=== PATIENT | female | born 1985 | race Caucasian/White ===

== ENCOUNTER 2016-06-18 07:39 | Emergency (ER) | payer OTHER ==
[2016-06-18 08:50] LABS: UDS - AMPHET NEGATIVE QUAL (NEGATIVE); UDS - BARB NEGATIVE QUAL (NEGATIVE); UDS - BENZO NEGATIVE QUAL (NEGATIVE); UDS - COCAINE NEGATIVE QUAL (NEGATIVE); UDS - METH NEGATIVE QUAL (NEGATIVE); UDS - OPIATE NEGATIVE QUAL (NEGATIVE); UDS - PCP NEGATIVE QUAL (NEGATIVE); UDS - THC NEGATIVE QUAL (NEGATIVE)
[2016-06-18 08:59] LABS: BASOPHILS 0.2 % (0.0-2.0); EOSINOPHILS 0.8 % (0-7); HEMATOCRIT 42.6 % (36.0-48.0); HEMOGLOBIN 14.5 g/dL (12-16); IMMATURE GRANULOCYTES 0.1 % (0-5); LYMPHOCYTES 23.3 % (15-50); MCH 31.2 pg (26.0-34.0); MCV 91.6 fL (80.0-100.0); MEAN PLATELET VOLUME 10.1 fL (7.4-10.4); MONOCYTES 9.2 % (2-11); NEUTROPHILS 66.4 % (40-80); PLATELET COUNT 243 10x3/uL (130-400); RBC 4.65 10x6/uL (4.00-5.40); RDW 13.1 % (11.5-14.5); WBC 8.7 10x3/uL (4.8-10.8)
[2016-06-18 09:01] LABS: APPEARANCE CLEAR (CLEAR); BILIRUBIN NEGATIVE (NEGATIVE); COLOR YELLOW (YELLOW); GLUCOSE NEGATIVE (NEGATIVE); KETONE NEGATIVE (NEGATIVE); LEUKOCYTE ESTERASE NEGATIVE (NEGATIVE); NITRITE NEGATIVE (NEGATIVE); PROTEIN NEGATIVE (NEGATIVE); SPECIFIC GRAVITY 1.005 (1.005-1.020); UROBILINOGEN NORMAL (NORMAL)
[2016-06-18 09:02] LABS: HCG URINE NEGATIVE (NEGATIVE)
[2016-06-18 09:17] LABS: ALBUMIN 4.1 g/dL (3.4-5.0); ALKALINE PHOSPHATASE 63 U/L (46-116); ALT (SGPT) 25 U/L (10-68); AMYLASE - SERUM 26 U/L (25-115); BILIRUBIN - TOTAL 0.24 mg/dL (0.2-1.3); CALC OSMOLALITY 282 mosm/kg (275-300); CARBON DIOXIDE 21.2 mmol/L (21.0-32.0); CHLORIDE - SERUM 107 mmol/L (98-107); CREATININE - SERUM 0.9 mg/dL (0.6-1.3); GLUCOSE 112 mg/dL (74-106); LIPASE 140 U/L (73-393); PROTEIN - SERUM 8.1 g/dL (6.4-8.2); SODIUM 141 mmol/L (136-145); UREA NITROGEN 14 mg/dL (7-18); eGFR NON AFRICAN AMERICAN 77 mL/min (90-120)
== END 2016-06-18 12:18 | disposition home or self-care (01) ==
LOC: D.ER 07:39
PROVIDERS: Family Medicine
DX: M62.838 Other muscle spasm (principal); B19.20 Unspecified viral hepatitis C without hepatic coma

== ENCOUNTER 2017-03-14 11:44 | Emergency (ER) | payer MEDICAID | END 2017-03-14 12:46 | disposition home or self-care (01) | LOC: D.ER 11:44 | DX: S29.012A Strain of muscle and tendon of back wall of thorax, initial encounter (principal); X58.XXXA Exposure to other specified factors, initial encounter; Y93.89 Activity, other specified; Y92.019 Unspecified place in single-family (private) house as the place of occurrence of the external cause ==

== ENCOUNTER 2017-04-15 17:25 | Emergency (ER) | payer MEDICAID ==
[2017-04-15 18:13] LABS: APPEARANCE CLEAR (CLEAR); BILIRUBIN NEGATIVE (NEGATIVE); COLOR YELLOW (YELLOW); GLUCOSE NEGATIVE (NEGATIVE); KETONE SMALL mg/dL (NEGATIVE); NITRITE NEGATIVE (NEGATIVE); PROTEIN NEGATIVE (NEGATIVE); SPECIFIC GRAVITY 1.015 (1.005-1.020); UROBILINOGEN NORMAL (NORMAL)
[2017-04-15 19:38] LABS: BASOPHILS 0.2 % (0-2); EOSINOPHILS 0.8 % (0-7); HEMATOCRIT 42.5 % (36.0-48.0); HEMOGLOBIN 14.7 g/dL (12-16); IMMATURE GRANULOCYTES 0.3 % (0-5); LYMPHOCYTES 30.7 % (15-50); MCH 31.3 pg (26.0-34.0); MCHC 34.6 g/dL (31.0-37.0); MCV 90.6 fL (80.0-100.0); MEAN PLATELET VOLUME 9.5 fL (7.4-10.4); MONOCYTES 7.7 % (2-11); NEUTROPHILS 60.3 % (40-80); PLATELET COUNT 276 10x3/uL (130-400); RBC 4.69 10x6/uL (4.00-5.40); RDW 12.5 % (11.5-14.5); WBC 11.8 10x3/uL (4.8-10.8)
[2017-04-15 20:17] LABS: ALBUMIN 4.2 g/dL (3.4-5.0); ALKALINE PHOSPHATASE 74 U/L (46-116); ALT (SGPT) 48 U/L (10-68); AMYLASE - SERUM 32 U/L (25-115); BILIRUBIN - TOTAL 0.34 mg/dL (0.2-1.3); CALC OSMOLALITY 276 mosm/kg (275-300); CALCIUM 9.3 mg/dL (8.5-10.1); CARBON DIOXIDE 23.9 mmol/L (21.0-32.0); CHLORIDE - SERUM 103 mmol/L (98-107); CREATININE - SERUM 0.7 mg/dL (0.6-1.3); GLUCOSE 83 mg/dL (74-106); LIPASE 148 U/L (73-393); PROTEIN - SERUM 7.7 g/dL (6.4-8.2); SODIUM 140 mmol/L (136-145); UREA NITROGEN 9 mg/dL (7-18); eGFR NON AFRICAN AMERICAN > 90 mL/min (90-120)
== END 2017-04-15 21:40 | disposition home or self-care (01) ==
LOC: D.ER 17:25
PROVIDERS: Family Medicine
DX: R10.9 Unspecified abdominal pain (principal); N83.209 Unspecified ovarian cyst, unspecified side; B19.20 Unspecified viral hepatitis C without hepatic coma

== ENCOUNTER 2017-07-25 11:22 | Emergency (ER) | payer MEDICAID | END 2017-07-25 12:26 | disposition home or self-care (01) | LOC: D.ER 11:22 | DX: G43.909 Migraine, unspecified, not intractable, without status migrainosus (principal); B19.20 Unspecified viral hepatitis C without hepatic coma ==

== ENCOUNTER 2017-07-27 09:55 | Emergency (ER) | payer MEDICAID | END 2017-07-27 11:43 | disposition home or self-care (01) | LOC: D.ER 09:55 | DX: S93.402A Sprain of unspecified ligament of left ankle, initial encounter (principal); X58.XXXA Exposure to other specified factors, initial encounter; Y93.89 Activity, other specified; Y92.89 Other specified places as the place of occurrence of the external cause; M25.572 Pain in left ankle and joints of left foot; B19.20 Unspecified viral hepatitis C without hepatic coma ==

== ENCOUNTER 2017-08-09 21:05 | Emergency (ER) | payer MEDICAID ==
[2017-08-09 21:42] LABS: BASOPHILS 0.2 % (0-2); HEMATOCRIT 40.8 % (36.0-48.0); HEMOGLOBIN 14.2 g/dL (12-16); IMMATURE GRANULOCYTES 0.3 % (0-5); MCH 31.3 pg (26.0-34.0); MCHC 34.8 g/dL (31.0-37.0); MCV 90.1 fL (80.0-100.0); MEAN PLATELET VOLUME 9.7 fL (7.4-10.4); MONOCYTES 7.2 % (2-11); NEUTROPHILS 58.3 % (40-80); PLATELET COUNT 304 10x3/uL (130-400); RBC 4.53 10x6/uL (4.00-5.40); RDW 12.8 % (11.5-14.5); WBC 12.5 10x3/uL (4.8-10.8)
[2017-08-09 21:47] LABS: APPEARANCE HAZY (CLEAR); BILIRUBIN NEGATIVE (NEGATIVE); COLOR YELLOW (YELLOW); GLUCOSE NEGATIVE (NEGATIVE); KETONE NEGATIVE (NEGATIVE); NITRITE NEGATIVE (NEGATIVE); PROTEIN NEGATIVE (NEGATIVE); UROBILINOGEN NORMAL (NORMAL)
[2017-08-09 21:49] LABS: HCG SERUM NEGATIVE (NEGATIVE)
[2017-08-09 21:52] LABS: BACTERIA MODERATE /hpf (NONE SEEN); RED CELLS - URINE 0-5 /hpf (0-5)
[2017-08-09 22:01] LABS: ALBUMIN 3.8 g/dL (3.4-5.0); ALKALINE PHOSPHATASE 74 U/L (46-116); ALT (SGPT) 26 U/L (10-68); BILIRUBIN - TOTAL 0.14 mg/dL (0.2-1.3); CALC OSMOLALITY 279 mosm/kg (275-300); CALCIUM 9.4 mg/dL (8.5-10.1); CARBON DIOXIDE 22.8 mmol/L (21.0-32.0); CHLORIDE - SERUM 105 mmol/L (98-107); CREATININE - SERUM 0.8 mg/dL (0.6-1.3); GLUCOSE 105 mg/dL (74-106); PROTEIN - SERUM 7.7 g/dL (6.4-8.2); SODIUM 140 mmol/L (136-145); UREA NITROGEN 14 mg/dL (7-18); eGFR NON AFRICAN AMERICAN 88 mL/min (90-120)
== END 2017-08-09 23:02 | disposition home or self-care (01) ==
LOC: D.ER 21:05
PROVIDERS: Emergency Medicine
DX: N39.0 Urinary tract infection, site not specified (principal); N83.202 Unspecified ovarian cyst, left side; B19.20 Unspecified viral hepatitis C without hepatic coma

== ENCOUNTER 2017-08-13 07:41 | Emergency (ER) | payer MEDICAID ==
[2017-08-13 08:31] LABS: BASOPHILS 0.3 % (0-2); HEMATOCRIT 41.7 % (36.0-48.0); HEMOGLOBIN 14.3 g/dL (12-16); IMMATURE GRANULOCYTES 0.1 % (0-5); LYMPHOCYTES 33.5 % (15-50); MCH 31.4 pg (26.0-34.0); MCHC 34.3 g/dL (31.0-37.0); MCV 91.4 fL (80.0-100.0); MEAN PLATELET VOLUME 9.8 fL (7.4-10.4); MONOCYTES 6.7 % (2-11); NEUTROPHILS 58.4 % (40-80); PLATELET COUNT 293 10x3/uL (130-400); RBC 4.56 10x6/uL (4.00-5.40); RDW 12.8 % (11.5-14.5); WBC 8.6 10x3/uL (4.8-10.8)
[2017-08-13 08:36] LABS: HCG SERUM NEGATIVE (NEGATIVE)
[2017-08-13 08:37] LABS: ALBUMIN 3.5 g/dL (3.4-5.0); ALKALINE PHOSPHATASE 67 U/L (46-116); ALT (SGPT) 26 U/L (10-68); BILIRUBIN - TOTAL 0.14 mg/dL (0.2-1.3); CALC OSMOLALITY 275 mosm/kg (275-300); CARBON DIOXIDE 21.8 mmol/L (21.0-32.0); CHLORIDE - SERUM 104 mmol/L (98-107); CREATININE - SERUM 0.8 mg/dL (0.6-1.3); GLUCOSE 99 mg/dL (74-106); POTASSIUM - SERUM 3.9 mmol/L (3.5-5.1); PROTEIN - SERUM 7.8 g/dL (6.4-8.2); SODIUM 138 mmol/L (136-145); UREA NITROGEN 13 mg/dL (7-18); eGFR NON AFRICAN AMERICAN 88 mL/min (90-120)
[2017-08-13 08:40] LABS: APPEARANCE HAZY (CLEAR); BILIRUBIN NEGATIVE (NEGATIVE); COLOR YELLOW (YELLOW); GLUCOSE NEGATIVE (NEGATIVE); KETONE NEGATIVE (NEGATIVE); NITRITE NEGATIVE (NEGATIVE); PROTEIN NEGATIVE (NEGATIVE); UROBILINOGEN NORMAL (NORMAL)
[2017-08-13 08:41] LABS: BACTERIA MANY /hpf (NONE SEEN); MUCUS <1+ /lpf (NONE SEEN); RED CELLS - URINE RARE /hpf (0-5)
== END 2017-08-13 10:04 | disposition home or self-care (01) ==
LOC: D.ER 07:41
PROVIDERS: Family Medicine
DX: N39.0 Urinary tract infection, site not specified (principal); B19.20 Unspecified viral hepatitis C without hepatic coma

== ENCOUNTER 2017-10-10 09:55 | Day surgery (SDC) | payer MEDICAID ==
[2017-10-08 13:39] LABS: BASOPHILS 0.2 % (0-2); EOSINOPHILS 1.3 % (0-7); HEMATOCRIT 40.8 % (36.0-48.0); HEMOGLOBIN 14.1 g/dL (12-16); IMMATURE GRANULOCYTES 0.2 % (0-5); LYMPHOCYTES 32.2 % (15-50); MCHC 34.6 g/dL (31.0-37.0); MCV 89.7 fL (80.0-100.0); MEAN PLATELET VOLUME 9.7 fL (7.4-10.4); MONOCYTES 6.6 % (2-11); NEUTROPHILS 59.5 % (40-80); PLATELET COUNT 313 10x3/uL (130-400); RBC 4.55 10x6/uL (4.00-5.40); RDW 12.7 % (11.5-14.5); WBC 9.7 10x3/uL (4.8-10.8)
[~2017-10-10] VITALS: Ht 166.4 cm; Wt 93.9 kg
--- NOTE | ~2017-10-10 | OP ---
PATIENT NAME: MOON PARSONS MEDICAL RECORD: [id number] :85 LOCATION:D.OPS ADMISSION DATE: SURGEON: RICHY BELLA MD DATE OF OPERATION: 10/10/2017 PREOPERATIVE DIAGNOSIS: Pelvic pain. POSTOPERATIVE DIAGNOSES: 1. Pelvic pain. 2. Endometriosis. PROCEDURE PERFORMED: 1. Diagnostic laparoscopy. 2. Serosal biopsy of the uterus. 3. Fulguration of endometriosis. SURGEON: Richy Bella MD ANESTHESIOLOGIST: Dr. Wen. ANESTHESIA: General anesthetic with endotracheal intubation. FINDINGS: Fibrotic changes are noted over the uterine fundus. Active classic powder burn lesions of endometriosis is identified on the right ovary. Otherwise, the pelvic and abdominal anatomy is unremarkable. SPECIMEN REMOVED: Serosal biopsy of the uterus. SPECIMEN DISPOSITION: Pathology. ESTIMATED BLOOD LOSS: Less than or equal to 50 cc. FLUIDS: 500 cc lactated Ringer's. URINE OUTPUT: Quantity sufficient cath prior to the procedure. COMPLICATIONS: None. DRAINS: None. INDICATIONS: The patient is a 32-year-old female with pelvic pain. The patient has tried conservative therapy without satisfactory results. The patient was consented for diagnostic laparoscopy and any indicated procedure. DESCRIPTION OF PROCEDURE: After informed consent was assured, the patient was taken to the operating room where anesthetic was obtained. The patient is supine on the table and prepped and draped. An incision was made at the umbilicus to accommodate a 5-mm trocar, which is inserted without difficulty. Pneumoperitoneum was developed. Accessory ports placed in the midline. The patient had been then placed in steep Trendelenburg position, has a bowel swept free of the pelvis. The above findings were encountered. Another port was placed in the right lower quadrant. Through this port, a grasper was inserted. A biopsy instrument was now used to remove fibrotic changes on the uterine fundus. The endometriosis identified on the right ovary is now fulgurated with a monopolar hook at the setting of 20 brush. After this has been performed, OPERATIVE REPORT [id number] MOON PARSONS pelvis was irrigated and irrigant removed. Operative field is noted to be hemostatic. Accessory ports are removed under direct visualization as the pneumoperitoneum was released. After removal of pneumoperitoneum, primary trocars removed and the skin reapproximated with a subcuticular stitch. Sterile dressings applied. Sponge, lap, and needle counts correct times 2. The patient went to the recovery area in stable condition. TRANSINT:[id number] Voice Confirmation ID: [id number] DOCUMENT ID: [id number] RICHY BELLA MD at 0653 CC: [id number] DICTATION DATE: 11/11/17 0739 TECHNICIAN PLANT AND MAINTENANCE: 11/11/17 1006 [facility] 10/10/17 [place] [id number]
[~2017-10-10 09:55] MED LIST: AMOXICILLIN500 M1 PO; JUNEL FE 1.5-31 EACH PO; PSEUDO-GEST60 MG PO; ULTRAM50 MG PO
[2017-10-10 10:41] VITALS: BP 126/86; Ht 166.4 cm; Wt 93.9 kg
[2017-10-10 11:01] LABS: HCG URINE NEGATIVE (NEGATIVE)
== END 2017-10-10 17:05 | disposition home or self-care (01) ==
LOC: D.OPS 09:55 → D.PAN 10:00 → D.OPS 11:15 → D.PAN 11:15 → D.OPS 17:05
PROVIDERS: Obstetrics & Gynecology
DX: R10.2 Pelvic and perineal pain (principal); N80.0 Endometriosis of uterus

== ENCOUNTER 2017-11-14 18:22 | Emergency (ER) | payer MEDICAID ==
[~2017-11-14] VITALS: Ht 166.4 cm; Wt 95.5 kg
[2017-11-14 18:47] VITALS: Ht 166.4 cm; Wt 95.5 kg
[2017-11-14] MEDS ORDERED: IMITREX50 MG PO (18:49)
[2017-11-14] MEDS ORDERED: BUTALB-APAP-CA1 EACH PO (18:49)
[2017-11-15 00:45] VITALS: BP 149/90
== END 2017-11-14 23:05 | disposition home or self-care (01) ==
LOC: D.ER 18:22
DX: G43.909 Migraine, unspecified, not intractable, without status migrainosus (principal)

== ENCOUNTER 2017-11-16 12:27 | Emergency (ER) | payer MEDICAID ==
[~2017-11-16] VITALS: Ht 166.4 cm; Wt 95.5 kg
[~2017-11-16 12:27] MED LIST changes: +BUTALB-APAP-CA1 EACH PO; +IMITREX50 MG PO
[2017-11-16 12:30] VITALS: Ht 166.4 cm; Wt 95.5 kg
[2017-11-16 13:36] LABS: BASOPHILS 0.2 % (0-2); EOSINOPHILS 1.4 % (0-7); HEMOGLOBIN 14.1 g/dL (12-16); IMMATURE GRANULOCYTES 0.2 % (0-5); LYMPHOCYTES 38.1 % (15-50); MCH 31.2 pg (26.0-34.0); MCHC 34.4 g/dL (31.0-37.0); MCV 90.7 fL (80.0-100.0); MEAN PLATELET VOLUME 9.8 fL (7.4-10.4); MONOCYTES 5.9 % (2-11); NEUTROPHILS 54.2 % (40-80); PLATELET COUNT 286 10x3/uL (130-400); RBC 4.52 10x6/uL (4.00-5.40); RDW 12.6 % (11.5-14.5); WBC 8.8 10x3/uL (4.8-10.8)
[2017-11-16 13:50] LABS: ALBUMIN 3.6 g/dL (3.4-5.0); ALKALINE PHOSPHATASE 70 U/L (46-116); ALT (SGPT) 26 U/L (10-68); BILIRUBIN - TOTAL 0.14 mg/dL (0.2-1.3); CALC OSMOLALITY 282 mosm/kg (275-300); CARBON DIOXIDE 24.3 mmol/L (21.0-32.0); CHLORIDE - SERUM 107 mmol/L (98-107); CREATININE - SERUM 0.8 mg/dL (0.6-1.3); GLUCOSE 115 mg/dL (74-106); POTASSIUM - SERUM 3.9 mmol/L (3.5-5.1); PROTEIN - SERUM 7.5 g/dL (6.4-8.2); SODIUM 142 mmol/L (136-145); UREA NITROGEN 9 mg/dL (7-18); eGFR NON AFRICAN AMERICAN 88 mL/min (90-120)
[2017-11-16] MEDS ORDERED: AUGMENTIN 875-11 TAB PO (17:10)
[2017-11-16] MEDS ORDERED: FLUTICASONE PRO16 GM NASAL (17:10)
[2017-11-16 17:39] VITALS: BP 121/76
== END 2017-11-16 17:41 | disposition home or self-care (01) ==
LOC: D.ER 12:27
PROVIDERS: Family Medicine
DX: J01.90 Acute sinusitis, unspecified (principal); G43.909 Migraine, unspecified, not intractable, without status migrainosus

== ENCOUNTER 2017-12-19 07:34 | Emergency (ER) | payer MEDICAID ==
[~2017-12-19] VITALS: Ht 166.4 cm; Wt 90.9 kg
[~2017-12-19 07:34] MED LIST changes: +AUGMENTIN 875-11 TAB PO; +FLUTICASONE PRO16 GM NASAL
[2017-12-19 07:46] VITALS: Ht 166.4 cm; Wt 90.9 kg
[2017-12-19] MEDS ORDERED: LUPRON (07:49)
[2017-12-19] MEDS ORDERED: SUMATRIPTAN SUC25 MG PO (08:31)
[2017-12-19 09:12] VITALS: BP 133/090
== END 2017-12-19 09:14 | disposition home or self-care (01) ==
LOC: D.ER 07:34
DX: G43.909 Migraine, unspecified, not intractable, without status migrainosus (principal)

== ENCOUNTER 2018-01-24 10:16 | Emergency (ER) | payer MEDICAID ==
[~2018-01-24] VITALS: Ht 166.4 cm; Wt 100.0 kg
[~2018-01-24 10:16] MED LIST changes: +LUPRON; +SUMATRIPTAN SUC25 MG PO
[2018-01-24 10:32] VITALS: Ht 166.4 cm; Wt 100.0 kg
[2018-01-24 13:31] VITALS: BP 134/90
== END 2018-01-24 13:32 | disposition home or self-care (01) ==
LOC: D.ER 10:16
DX: G43.909 Migraine, unspecified, not intractable, without status migrainosus (principal)

== ENCOUNTER 2018-05-08 12:11 | Emergency (ER) | payer MEDICAID ==
[~2018-05-08] VITALS: Ht 166.4 cm; Wt 97.7 kg
[2018-05-08 12:26] VITALS: Ht 166.4 cm; Wt 97.7 kg
[2018-05-08 12:47] LABS: APPEARANCE HAZY (CLEAR); BILIRUBIN NEGATIVE (NEGATIVE); COLOR STRAW (YELLOW); GLUCOSE NEGATIVE (NEGATIVE); KETONE NEGATIVE (NEGATIVE); NITRITE NEGATIVE (NEGATIVE); PH 7.5 (5.0-6.0); PROTEIN NEGATIVE (NEGATIVE); SPECIFIC GRAVITY 1.005 (1.005-1.020); UROBILINOGEN NORMAL (NORMAL)
[2018-05-08 13:12] LABS: BASOPHILS 0.2 % (0-2); EOSINOPHILS 1.4 % (0-7); HEMATOCRIT 42.1 % (36.0-48.0); HEMOGLOBIN 14.7 g/dL (12-16); IMMATURE GRANULOCYTES 0.2 % (0-5); MCH 31.3 pg (26.0-34.0); MCHC 34.9 g/dL (31.0-37.0); MCV 89.6 fL (80.0-100.0); MEAN PLATELET VOLUME 9.8 fL (7.4-10.4); MONOCYTES 5.8 % (2-11); NEUTROPHILS 55.4 % (40-80); PLATELET COUNT 269 10x3/uL (130-400); RDW 12.6 % (11.5-14.5); WBC 9.3 10x3/uL (4.8-10.8)
[2018-05-08 13:15] LABS: ALBUMIN 4.1 g/dL (3.4-5.0); ALKALINE PHOSPHATASE 94 U/L (46-116); ALT (SGPT) 33 U/L (10-68); CALC OSMOLALITY 277 mosm/kg (275-300); CARBON DIOXIDE 21.8 mmol/L (21.0-32.0); CHLORIDE - SERUM 104 mmol/L (98-107); CREATININE - SERUM 0.8 mg/dL (0.6-1.3); GLUCOSE 90 mg/dL (74-106); POTASSIUM - SERUM 3.7 mmol/L (3.5-5.1); PROTEIN - SERUM 8.2 g/dL (6.4-8.2); SODIUM 140 mmol/L (136-145); UREA NITROGEN 9 mg/dL (7-18); eGFR NON AFRICAN AMERICAN 87 mL/min (90-120)
[2018-05-08] MEDS ORDERED: ULTRAM50 MG PO (13:35)
[2018-05-08 14:06] VITALS: BP 136/97
== END 2018-05-08 14:04 | disposition home or self-care (01) ==
LOC: D.ER 12:11
PROVIDERS: Emergency Medicine
DX: R10.2 Pelvic and perineal pain (principal)

== ENCOUNTER 2018-06-16 05:25 | Day surgery (SDC) | payer MEDICAID ==
[2018-06-13 10:56] LABS: BASOPHILS 0.4 % (0-2); EOSINOPHILS 0.6 % (0-7); HEMOGLOBIN 14.8 g/dL (12-16); IMMATURE GRANULOCYTES 0.2 % (0-5); LYMPHOCYTES 31.9 % (15-50); MCHC 35.2 g/dL (31.0-37.0); MCV 87.9 fL (80.0-100.0); MEAN PLATELET VOLUME 9.6 fL (7.4-10.4); MONOCYTES 8.4 % (2-11); NEUTROPHILS 58.5 % (40-80); PLATELET COUNT 300 10x3/uL (130-400); RBC 4.78 10x6/uL (4.00-5.40); RDW 12.9 % (11.5-14.5); WBC 8.4 10x3/uL (4.8-10.8)
[2018-06-13 11:07] LABS: CALC OSMOLALITY 285 mosm/kg (275-300); CALCIUM 9.2 mg/dL (8.5-10.1); CARBON DIOXIDE 22.7 mmol/L (21.0-32.0); CHLORIDE - SERUM 107 mmol/L (98-107); CREATININE - SERUM 0.8 mg/dL (0.6-1.3); GLUCOSE 102 mg/dL (74-106); POTASSIUM - SERUM 4.1 mmol/L (3.5-5.1); SODIUM 143 mmol/L (136-145); UREA NITROGEN 16 mg/dL (7-18); eGFR NON AFRICAN AMERICAN 87 mL/min (90-120)
[2018-06-16] VITALS (8 sets, daily range): BP systolic 102–113; BP diastolic 63–82; Ht 166.4 cm; Wt 97.3 kg
[~2018-06-16] VITALS: Ht 166.4 cm; Wt 97.3 kg
[~2018-06-16 05:25] MED LIST changes: +CENTRUM SILVER1 EAC3 PO
[2018-06-16] MEDS ORDERED: AJOVY SQ (05:54)
[2018-06-16] MEDS ORDERED: NIZORAL 2 % SH120 ML (05:54)
[2018-06-16 06:30] LABS: HCG URINE NEGATIVE (NEGATIVE)
--- NOTE | 2018-06-16 10:20 | NUR ---
REC'D PT BACK FROM RECOVERY POST LAP HYSTERECTOMY AND L OVARY REMOVAL. PT AA&O X4. RATES PAIN 05/18. PT HAS PIV TO RT HAND W/20 GUAGE. CURRENT FLUID IS LR W/APPROX 600ML REMAINING. AGUILAR CATH IN PLACE DRAINING VIA GRAVITY. APPROX 15ML NOTED IN BAG. NO VAG BLEEDING NOTED AT PRESENT. 3 LAP INCISIONS C/D/I W/DERMABOND.
--- NOTE | 2018-06-16 11:00 | NUR ---
ASSESSMENT COMPLETED. SEE FLOWSHEET.
--- NOTE | 2018-06-16 11:23 | NUR ---
DR BELLA ON UNIT. ORDERS REC'D TO D/C LAUREN AT 1600.
--- NOTE | 2018-06-16 12:15 | NUR ---
pt rings call light. questions if she can have something for the itching caused by the iv med diluadid. pt reports she can't have iv benadryl, but she has no problem taking it by mouth. this rn informs pt that md will have to be notified. pt agreeable.
--- NOTE | 2018-06-16 12:30 | NUR ---
THIS RN TO BEDSIDE TO LET PT KNOW DR BELLA WILL BE NOTIFIED OF HER REQUEST. PT VERBALIZES UNDERSTANDING. DENIES NEEDS AT PRESENT. PAIN RATED 3/10. NO ADDITIONAL PAIN INTERVENTIONS AT THIS TIME REQUESTED.
--- NOTE | 2018-06-16 13:07 | NUR ---
ROUNDS MADE. CLEAR LIQUID LUNCH TRAY SERVED. FRESH ICE WATER SERVED. PT RATES PAIN 4/10 AND DESIRE PAIN MEDICATION WHEN SHE CAN HAVE IT AGAIN. APPROX 175ML URINE EMPTIED FROM UROMETER. CLOUDY IN APPEARANCE.
--- NOTE | 2018-06-16 13:30 | NUR ---
REQUESTING OTHER HALF DOSE OF DILAUDID FOR PAIN, LEVEL 5 ON 0-10 SCALE. REMAINS STABLE WITH NO SIGNS OF DISTRESS. LEFT ABD STAB WOUND INTACT WITH SKIN GLUE AND SCANT AMT RED DRNG NOTED OOZING FROM UNDER SKIN GLUE. IV PATENT. ALERT AND ORIENTED.
--- NOTE | 2018-06-16 14:00 | NUR ---
REPORTS PAIN SUBSIDING. FRIEND AT BEDSIDE.
--- NOTE | 2018-06-16 14:21 | OP ---
PATIENT NAME: MOON PARSONS MEDICAL RECORD: [id number] :85 [facility] ADMISSION DATE: SURGEON: AYUSH BELLA MD DATE OF OPERATION: 06/16/2018 PREOPERATIVE DIAGNOSES: 1. Pelvic pain. 2. Dyspareunia. 3. Dysmenorrhea. 4. Alteration in life pattern. 5. History of endometriosis. POSTOPERATIVE DIAGNOSES: 1. Pelvic pain. 2. Dyspareunia. 3. Dysmenorrhea. 4. Alteration in life pattern. 5. History of endometriosis. PROCEDURE PERFORMED: 1. Diagnostic laparoscopy. 2. Total laparoscopic hysterectomy. 3. Left salpingo-oophorectomy. SURGEON: Ayush Bella MD TESTER SOUND: Adama Rivera MD SAMPLE PASTER: Darin Hassan ANESTHESIOLOGIST: Dr. Lowe ANESTHETIC: General. FINDINGS: The uterus, left tube and ovary are unremarkable. The right ovary is unremarkable. The distal portion of the right tube was densely adhered to the right ovary and across infundibulopelvic ligament. SPECIMENS REMOVED: 1. Left ovary and tube. 2. Uterus with cervix. SPECIMEN DISPOSITION: All specimens to Pathology. ESTIMATED BLOOD LOSS: Less than or equal to 100 cc. FLUIDS: One liter of lactated Ringer's. URINE OUTPUT: 115 cc of clear urine. COMPLICATIONS: None. DRAINS: Rehman to gravity. INDICATIONS: The patient is a 33-year-old female with a history of OPERATIVE REPORT [id number] MOON PARSONS endometriosis. The patient is having this painful periods and painful intercourse. The patient reports negative impact on quality of life and a negative impact on interpersonal relationships due to the symptoms. The patient requests definitive treatment. Risks, benefits as well as limitations of these procedures have been discussed. Due to the fact the patient has primarily left-sided pelvic pain along with midline, she is requesting removal of the left ovary. DESCRIPTION OF PROCEDURE: After informed consent was assured, the patient was taken to the operating room where anesthetic was obtained. She was placed in [place]in stirrups and prepped and draped. The uterine manipulator was placed and then attention directed to the abdomen where an incision was made. Trocar inserted and pneumoperitoneum developed. Accessory ports were placed in the right and left lower quadrant. With the patient in Trendelenburg position, the uterus was manipulated with visualization of both adnexa. The left tube and ovary was elevated with a grasper from the right and then using a coagulation cutter, the attachments of the ovary to the infundibulopelvic ligament are serially compressed, coagulated, and . This dissection was carried out underneath the ovary across the round ligament and the anterior leaf of the broad ligament was opened with the bladder flap being developed to the midline. The posterior leaf was opened, the vessel skeletonized on the left side and then they were compressed and coagulated. Attention was now directed to the right. Due to the dense adhesions of the right tube to the ovary and infundibulopelvic ligament, the removal of the right ovary was abandoned and dissection begins at the uterine ovarian ligament. This ligament was compressed, coagulated, and . The dissection was carried over the round ligament and the anterior leaf of the broad ligament was opened with full development of the bladder flap. Posterior leaf of the broad ligament was dissected free of the vascular bundle and the uterine artery now compressed, coagulated, and at the level of the internal os. A single bite was taken below this to allow the vascular bundle to fall lateral to the cervix. Dissection now begins with a Harmonic scalpel. This was conducted from the 3 to the 6 o'clock position. Dissection continues from the 6 to the 12 o'clock position with eventual loss of the pneumoperitoneum. Attention was now directed to the vagina where a weighted speculum was placed. The Bovie cautery was used to mobilize the bladder off of the cervix from below. Once the previous dissection from above was met, the uterus was completely removed from its attachment to the vagina. A Vicryl stitch was placed through the posterior cuff across to the left uterosacral ligament across the peritoneum posteriorly through the left uterosacral ligament and back out into the pelvis. This was tagged to be tied later in the procedure. The close now begins from anterior to posterior with interrupted Vicryl stitches. Once the cuff was closed, the before mentioned Vicryl stitch held on hemostats tied and this way securing ligament support to the apex of the vagina. Attention was now directed back to the abdomen where pneumoperitoneum was developed. The pelvis was irrigated and the operative field inspected and found to be hemostatic. Accessory trocars were removed under direct visualization as the pneumoperitoneum was released. Primary trocars removed and all sites closed with a subcuticular stitch. Dermabond was applied. Sponge, lap, and needle counts correct times 2. TRANSINT:[id number] Voice Confirmation ID: [id number] DOCUMENT ID: [id number] OPERATIVE REPORT [id number] MOON PARSONS,AYUSH Wan MD at 1421 CC: [id number] DICTATION DATE: 06/16/18 1021 POLE CUTTER: 06/16/18 1142 [id number] [place] [address]
--- NOTE | 2018-06-16 14:30 | NUR ---
INITIAL DOSE NEURONTIN GIVEN PO. DENIES NAUSEA. PASTOR CLEAR LIQUID DIET WELL.
--- NOTE | 2018-06-16 14:53 | NUR ---
DR BELLA IN UNIT TO SEE PT- REG DIET ORDERED.
--- NOTE | 2018-06-16 15:15 | NUR ---
THIS NURSE TO UNIT TO MONITOR FOR Taylor SAINZ RN.
--- NOTE | 2018-06-16 15:45 | NUR ---
Michael SILVER RN TO UNIT.
--- NOTE | 2018-06-16 16:26 | NUR ---
SPOKE WITH DR BELLA- REPORT GIVEN. ORDER RECEIVED TO D/C AGUILAR AND SALINE LOCK IV.
--- NOTE | 2018-06-16 17:15 | NUR ---
30mg TORADOL SIVP GIVEN. LINE FLUSHED. IV SITE SALINE LOCKED. AGUILAR CATH D/C'D W/APPROX 1400ML EMPTIED FROM AGUILAR BAG. PT UP TO BR AND TO CHANGE INTO HER OWN CLOTHES.
--- NOTE | 2018-06-16 19:15 | NUR ---
REPORT GIVEN TO Audra GOLDMAN RN
--- NOTE | 2018-06-16 19:16 | NUR ---
PT SPOT BILLING CLERK LIGHT, PT C/O INC PAIN, ADM PERCOCET PER MD ORDERS, SEE EMAR, PT REPORTS VOIDING X 2, EMPTIED 900 MLS OF CLEAR YELLOW URINE FROM [place] HAT, INFORMED PT THAT I WILL BE BACK SHORTLY TO DO ASSESSMENT, PT VERBALIZES UNDERSTANDING, DENIES FURTHER NEEDS AT THIS TIME, BED IN LOW POSITION, SIDE RAILS X 2, CALL LIGHT IN REACH, PT'S MOM AT BEDSIDE
--- NOTE | 2018-06-16 19:49 | NUR ---
PT RINGS CALL LIGHT. THIS RN TO BEDSIDE. PT REQUESTING ICE CAP AND SOMETHING FOR NAUSEA. ICE CAP PROVIDED. Audra GOLDMAN RN INFORMED OF PT'S C/O NAUSEA. WILL NOTIFY DR BELLA
--- NOTE | 2018-06-16 20:29 | NUR ---
ASSESSMENT PER FLOW SHEET, VS OBTAINED, SALINE LOCK IN LEFT HAND INTACT WITH NO REDNESS OR EDEMA, SALINE LOCK FLUSHED, ADM REGAL DILUTED IN NS AND ADM SIVP, SALINE LOCK FLUSHED, 2 LOWER ABD INC AND 1 UMB INC WITH DERMABOND CDI WITH NO DRAINAGE NOTED, VALERIY PAD OVER LOWER INC FOR COMFORT AND MOISTURE CONTROL, PT DENIES FLATUS, NO BM AND VOIDING WITH NO DIFFICULTY, PT REPORTS THAT SHE DOES NOT LIKE THE ICE PACK, REQUESTED AND SERVED FRESH H20, DENIES FURTHER NEEDS AT THIS TIME, BED IN LOW POSITION, SIDE RAILS X 2, CALL LIGHT IN REACH
--- NOTE | 2018-06-16 21:15 | NUR ---
PT RESTING WITH EYES CLOSED, AROUSES TO SOFT VERBAL STIMULATION, ADM GABAPENTIN PER MD ORDERS, SEE EMAR, PT DENIES FURTHER NEEDS, BED IN LOW POSITION, SIDE RAILS X 2, CALL LIGHT IN REACH
--- NOTE | 2018-06-16 22:12 | NUR ---
PT RESTING WITH EYES CLOSED, RESP QUIET, NO DISTRESS NOTED, LEFT UNDISTURBED AT THIS TIME
--- NOTE | 2018-06-16 23:34 | NUR ---
PT RESTING WITH EYES CLOSED, AROUSES TO SOFT VERBAL STIMULATION, VS OBTAINED, SALINE LOCK FLUSHED, ADM TORADOL DILUTED IN SALINE SIVP PER MD ORDERS, SEE EMAR, SALINE LOCK FLUSHED, PT REQUESTED AND SERVED PUDDING, UMANG CRACKERS, AND FRESH H20
--- NOTE | 2018-06-17 01:44 | NUR ---
PT RESTING WITH EYES CLOSED, RESP QUIET, NO DISTRESS NOTED, LEFT UNDISTURBED AT THIS TIME
--- NOTE | 2018-06-17 02:34 | NUR ---
PT RESTING WITH EYES CLOSED, AROUSES TO SOFT VERBAL STIMULATION, UPON GETTING READY TO ADM REGLAN, SALINE LOCK NOTED TO BE OUT, PT FOUND IT IN THE BED, TAPE REMOVED FROM HAND, BANDAID APPLIED, EXPLAINED TO PT REGARDING THE ADM OF REGLAN, PT REFUSES TO START ANOTHER IV, REPORTS THAT SHE DOES NOT FEEL LIKE SHE NEEDS THE REGLAN DUE TO "NO NAUSEA", ALSO, EXPLAIN TO PT REGARDING THE TORADOL IM NOW, PT STATES "THAT'S OK SINCE I ONLY HAVE 1 DOSE LEFT", PT ALSO STATES "YOU CAN JUST BRING MY PAIN MEDICINE IN WHEN YOU GIVE ME THE TORADOL", PT DENIES NEEDS AT THIS TIME, REGLAN AND 2 SALINE FLUSHES WASTED IN PYXIS AND THROWN IN SHARPS CONTAINER WITNESSED WITH MANNIE GORE RN
--- NOTE | 2018-06-17 04:12 | NUR ---
PT RESTING WITH EYES CLOSED, RESP QUIET, NO DISTRESS NOTED, LEFT UNDISTURBED AT THIS TIME
[2018-06-17 05:36] VITALS: BP 113/79
--- NOTE | 2018-06-17 05:36 | NUR ---
PT RESTING WITH EYES CLOSED, AROUSES TO SOFT VERBAL STIMULATION, VS OBTAINED, ADM PERCOCET PER MD ORDERS, SEE EMAR, WITH FRESH H20, INFORMED PT THAT I WILL ADM TORADOL SHORTLY, PT VERBALIZES UNDERSTANDING, EMPTIED 700 MLS OF CLEAR YELLOW URINE FROM [place] HAT, PT DENIES FURTHER NEEDS
--- NOTE | 2018-06-17 05:50 | NUR ---
SPOKE TO MANNIE, PHARMACIST, REGARDING HOW TO DOCUMENT TORADOL IM UNDER THE DROP DOWN WINDOW, HE CHANGED IT SO I COULD DOCUMENT IT IM SINCE THE PT DOES NOT HAVE IV ACCESS
--- NOTE | 2018-06-17 05:57 | NUR ---
ADM TORADOL IM IN RIGHT HIP AREA, SEE EMAR, PT PASTOR WELL, BANDAID APPLIED, PT PT REPORTS GETTING UP TO BR, EMPTIED 400 MLS OF CLEAR YELLOW URINE, PT DENIES FURTHER NEEDS
--- NOTE | 2018-06-17 06:29 | NUR ---
PT REQUESTED AND SERVED UMANG CRACKERS, PEANUT BUTTER, VANILLA PUDDING AND FRESH H20, PT DENIES FURTHER NEEDS
--- NOTE | 2018-06-17 07:20 | NUR ---
pt family member out to desk stating that Dr Diamond came in earlier and told them that discharge would be today, pt is ready now. Explained that paperwork would be printed and gone over. dietary to room with regular breakfast tray.
[2018-06-17] MEDS ORDERED: PERCOCET 7.5/321 TAB PO (08:02)
[2018-06-17] MEDS ORDERED: IBUPROFEN800 MG PO (08:02)
[2018-06-17] MEDS ORDERED: NEURONTIN 300300 MG PO (08:03)
--- NOTE | 2018-06-17 08:11 | NUR ---
AM assessment completed as charted on flowsheet. pt rates pain at 2/10 at this time. large cup of ice per request. she is getting personnel things togather and will call when ready for paperwork.
--- NOTE | 2018-06-17 08:30 | NUR ---
Verbal and written discharge instructions gone over with written scripts provided for Percocet 7/325mg, Neurotin 300mg and Motrin 800mg. pt states understanding of s/s infections and what she should do. Denies quesitons or concerns, [address] Diamond already scheduled per pt. Volunteer notified for wheelchair.
--- NOTE | 2018-06-17 08:34 | NUR ---
pt taken off unit by wheelchair, no distress noted. Home with family member.
== END 2018-06-17 08:30 | disposition home or self-care (01) ==
LOC: D.OPS 05:25 → D.PAN 07:30 → D.OPS 07:30 → D.WS 10:36 → D.OPS 06-17 08:30
PROVIDERS: ATTEND Obstetrics & Gynecology
DX: R10.2 Pelvic and perineal pain (principal); N94.10 Unspecified dyspareunia; N94.6 Dysmenorrhea, unspecified; N73.6 Female pelvic peritoneal adhesions (postinfective); Z01.812 Encounter for preprocedural laboratory examination

== ENCOUNTER 2019-03-13 19:26 | Emergency (ER) | payer MEDICAID ==
[~2019-03-13] VITALS: Ht 166.4 cm; Wt 90.9 kg
[~2019-03-13 19:26] MED LIST changes: +AJOVY SQ; +IBUPROFEN800 MG PO; +NEURONTIN 300300 MG PO; +NIZORAL 2 % SH120 ML; +PERCOCET 7.5/321 TAB PO
[2019-03-13 19:33] VITALS: Ht 166.4 cm; Wt 90.9 kg
[2019-03-13 19:50] LABS: APPEARANCE CLEAR (CLEAR); BILIRUBIN NEGATIVE (NEGATIVE); COLOR YELLOW (YELLOW); GLUCOSE NEGATIVE (NEGATIVE); KETONE MODERATE mg/dL (NEGATIVE); NITRITE NEGATIVE (NEGATIVE); PROTEIN NEGATIVE (NEGATIVE); SPECIFIC GRAVITY 1.015 (1.005-1.020); UROBILINOGEN NORMAL (NORMAL)
[2019-03-13 20:29] LABS: HCG URINE NEGATIVE (NEGATIVE)
[2019-03-13 22:23] VITALS: BP 121/79
== END 2019-03-13 22:23 | disposition home or self-care (01) ==
LOC: D.ER 19:26
PROVIDERS: Family Medicine
DX: R10.9 Unspecified abdominal pain (principal); Z87.442 Personal history of urinary calculi

== ENCOUNTER 2019-03-17 17:18 | Emergency (ER) | payer MEDICAID ==
[~2019-03-17] VITALS: Ht 166.4 cm; Wt 90.9 kg
[2019-03-17 17:30] VITALS: Ht 166.4 cm; Wt 90.9 kg
[2019-03-17 18:19] LABS: BASOPHILS 0.2 % (0-2); EOSINOPHILS 2.4 % (0-7); HEMATOCRIT 45.4 % (36.0-48.0); HEMOGLOBIN 15.5 g/dL (12-16); IMMATURE GRANULOCYTES 0.2 % (0-5); LYMPHOCYTES 36.1 % (15-50); MCH 31.6 pg (26.0-34.0); MCHC 34.1 g/dL (31.0-37.0); MCV 92.5 fL (80.0-100.0); MONOCYTES 8.6 % (2-11); NEUTROPHILS 52.5 % (40-80); PLATELET COUNT 321 10x3/uL (130-400); RBC 4.91 10x6/uL (4.00-5.40); RDW 13.5 % (11.5-14.5); WBC 9.4 10x3/uL (4.8-10.8)
[2019-03-17 18:21] LABS: APPEARANCE CLEAR (CLEAR); BILIRUBIN NEGATIVE (NEGATIVE); COLOR YELLOW (YELLOW); GLUCOSE NEGATIVE (NEGATIVE); KETONE NEGATIVE (NEGATIVE); NITRITE NEGATIVE (NEGATIVE); PROTEIN NEGATIVE (NEGATIVE); SPECIFIC GRAVITY 1.025 (1.005-1.020); UROBILINOGEN NORMAL (NORMAL)
[2019-03-17 18:26] LABS: CALC OSMOLALITY 283 mosm/kg (275-300); CALCIUM 9.4 mg/dL (8.5-10.1); CARBON DIOXIDE 23.5 mmol/L (21.0-32.0); CHLORIDE - SERUM 107 mmol/L (98-107); CREATININE - SERUM 0.6 mg/dL (0.6-1.3); GLUCOSE 131 mg/dL (74-106); POTASSIUM - SERUM 4.5 mmol/L (3.5-5.1); SODIUM 142 mmol/L (136-145); UREA NITROGEN 10 mg/dL (7-18); eGFR NON AFRICAN AMERICAN > 90 mL/min (90-120)
[2019-03-17 18:41] LABS: ALBUMIN 3.9 g/dL (3.4-5.0); ALKALINE PHOSPHATASE 91 U/L (46-116); ALT (SGPT) 34 U/L (10-68); AMYLASE - SERUM 25 U/L (25-115); LIPASE 204 U/L (73-393); PROTEIN - SERUM 7.8 g/dL (6.4-8.2)
[2019-03-17 18:50] LABS: TROPONIN-I < 0.017 ng/mL (0.000-0.060)
[2019-03-17] MEDS ORDERED: HYDROCODON-ACE1 EA10 PO (18:59)
[2019-03-17 19:19] VITALS: BP 130/93
== END 2019-03-17 19:24 | disposition home or self-care (01) ==
LOC: D.ER 17:18
PROVIDERS: Family Medicine
DX: N13.30 Unspecified hydronephrosis (principal); R10.9 Unspecified abdominal pain

== ENCOUNTER 2019-04-14 05:55 | Inpatient (IN) | payer OTHER ==
[2019-04-13 13:37] LABS: BASOPHILS 0.2 % (0-2); EOSINOPHILS 1.3 % (0-7); HEMATOCRIT 45.6 % (36.0-48.0); HEMOGLOBIN 15.5 g/dL (12-16); IMMATURE GRANULOCYTES 0.3 % (0-5); LYMPHOCYTES 39.2 % (15-50); MCH 31.4 pg (26.0-34.0); MCV 92.3 fL (80.0-100.0); MEAN PLATELET VOLUME 9.8 fL (7.4-10.4); PLATELET COUNT 307 10x3/uL (130-400); RBC 4.94 10x6/uL (4.00-5.40); RDW 12.9 % (11.5-14.5); WBC 10.3 10x3/uL (4.8-10.8)
[2019-04-13 14:02] LABS: CALC OSMOLALITY 278 mosm/kg (275-300); CALCIUM 8.9 mg/dL (8.5-10.1); CARBON DIOXIDE 25.6 mmol/L (21.0-32.0); CHLORIDE - SERUM 105 mmol/L (98-107); CREATININE - SERUM 0.8 mg/dL (0.6-1.3); GLUCOSE 89 mg/dL (74-106); INR 0.97 (0.85-1.17); POTASSIUM - SERUM 4.3 mmol/L (3.5-5.1); PROTIME 12.4 SECONDS (11.6-15.0); SODIUM 141 mmol/L (136-145); UREA NITROGEN 11 mg/dL (7-18); eGFR NON AFRICAN AMERICAN 87 mL/min (90-120)
[~2019-04-14] VITALS: Ht 165.1 cm; Wt 101.4 kg
--- NOTE | ~2019-04-14 | HEMODYNAMI ---
PATIENT:MOON PARSONS SEPTEMBER MEDICAL RECORD: [id number] : 85 LOCATION:[facility] ADMISSION DATE: 04/14/19 Generatedon:04/14/201910:54 Patient name: MOON PARSONS Patient #: [id number] SSN: D OB: 1985 Date of study: 04/14/2019 Page: Of Hemodynamic Procedure Report Patient Data Patient Demographics Procedure consent was obtained First Name: MOON Gender: Female Last Name: JAQUELINE : 1985 Middle Initial: SEPTEMBER Age: 34 year(s) Patient #: [id number] Race: Unknown Additional ID: [id number] Contact details Address: [address] [place] [address] State: [place] City: [facility] [place] Zip code: [address] Past Medical History Allergies Allergen Reaction Date Comments Reported Codeine 04/14/2019 Morphine 04/14/2019 Other allergy 04/14/2019 benedryl Admission Admission Data Admission Date: 04/14/2019 Admission Time: 5:55 Height (in.): 65 BSA: 2.07 (m2) Height (cm.): 165.1 BMI: 36.94 (kg/m2) Weight (lbs.): 222 Weight (kg.): 100.7 Procedure Procedure Types Cath Procedure Peripheral Cath Diagnostic Procedure Costume Specialist Peripheral Procedures Nephro Perc Neph Uret Cath Procedure Description Procedure Date Procedure Date: 04/14/2019 Procedure Start Time: 9:53 Procedure Staff Name Function Ida Sanchez RT Leather Crafter Kiko Stanley RT Scrub Emma Velazco RN Nurse Sanket Graham MD Performing Physician Ahsan Shane CRNA Additional personnel Procedure Data Cath Procedure Fluoroscopy Diagnostic fluoroscopy Total fluoroscopy Time: time: 18.4 min 18.4 min Diagnostic fluoroscopy Total fluoroscopy dose: dose: 1108 mGy 1108 mGy Contrast Material Contrast Material Type Amount (ml) Isovue 300 35 Procedure Medications Medication Administration Route Dosage Heparin Flush Bag added to field 1 bags (1000units/500ml NS) Lidocaine 1% added to field 20 unlisted medication I.V.P.B 1 Hemodynamics Rest BSA: 2.07 (m2) O2 Consumption: Estimated: 281.52 (ml/min) O2 Consumption indexed : Estimated:136 (ml/min/m) Pre Cath Intra NCS Post Cath Medications Time Medication Route Dose Verified Delivered Reason Notes Effe ctiveness by by 9:41:57 Heparin Flush added 1 M J Santos Graham used for Bag to bags MD CORTEZ procedure (1000units/500ml field NS) 9:42:09 Lidocaine 1% added 20ml M J Santos Kulkarni Santos for local to vial MD CORTEZ anesthetic field 9:42:36 cefepime I.V.P.B 1 gm M Shad Santos Emma Per MD Velazco RN physician Procedure Log Time Note 9:20:23 Patient Height : 65 inches 9:20:27 Patient Weight : 222 lbs 9:20:48 Time tracking: Regular hours (M-F 7:00 - 5:00) 9:21:14 Plan of Care:Hemodynamics will remain stable., Cardiac rhythm will remain stable., Comfort level will be maintained., Respiratory function will remain adequate., Patient/ family verbilizes understanding of procedure., Procedure tolerated without complication., Recovers from procedure without complications.. 9:21:23 Patient received from Outpatients to IR Alert and oriented. Tansferred to table in Prone position. 9:21:27 Signed procedure consent form obtained from patient. 9:21:54 H&P Date Dictated: 04/14/2019 Within 30 days and on chart., H&P Addendum completed by physician on day of procedure. (MUST COMPLETE FOR ALL OUTPATIENTS). 9:21:56 Pre-procedure instructions explained to patient. 9:21:57 Pre-op teaching completed and patient verbalized understanding. 9:21:59 Family in waiting room. 9:22:02 Patient NPO since Midnight. 9:22:12 Patient allergic to Codeine 9:22:19 Patient allergic to Morphine 9:23:48 Patient allergic to Other allergybenedryl 9:23:57 - 9:24:04 Use device set IR Diagnostic 9:24:06 Tegaderm 4 x 4 ([id number]) opened to sterile field. 9:24:07 Sterile Angiographic Pack opened to sterile field. 9:24:08 Bag Decanter () opened to sterile field. 9:24:17 - 9:24:23 Is the patient allergic to Iodine/contrast media? No. 9:24:38 Patient diabetic? No. 9:24:57 CHIBA 22 X 15 needle opened to sterile field. 9:25:06 KIT, INTRODUCER ACCUSTICK II W/C ([id number]) opened to sterile field. 9:25:30 - 9:25:33 ----Pre-sedation anethsthesia assessment.----SEE ANESTHESIA NOTES FOR MONITORING OF PATIENT DURING PROCEDURE 9:26:23 - 9:41:57 Heparin Flush Bag (1000units/500ml NS) 1 bags added to field was administered by Sanket Graham MD; used for procedure; Verbal order read back and verified. 9:42:09 Lidocaine 1% 20ml vial added to field was administered by Sanket Graham MD; for local anesthetic; Verbal order read back and verified. 9:42:36 cefepime 1 gm I.V.P.B was administered by Emma Velazco RN; Per physician; Verbal order read back and verified. 9:51:53 Physician arrived 9:51:54 --------ALL STOP TIME OUT------ 9:51:55 Final Timeout: patient, procedure, and site verified with staff and physician. All members of the team are in agreement. 9:52:10 Fire Safety Assessment: A--An alcohol-based skin anteseptic being used preoperatively., C--Open oxygen or nitrous oxide is being used. 9:52:47 2) 60-89 Mildly reduced kidney function, and other findings (as for stage 1) point to kidney disease. 9:53:24 Maximum allowable contrast dose (3.7 X eGFR X 0.75)246 ml. 9:53:35 Procedure started. 9:53:36 Full Disclosure recording started 9:53:47 Local anesthetic to Left Renal area with Lidocaine 1% by Sanket Graham MD.INITIAL ACCESS ONLY 10:02:44 NITINOL .018 80cm wire ([id number]) opened to sterile field. 10:08:29 GLIDE WIRE GT DOUBLE ANGLE .018 (RG*[id number]) opened to sterile field. 10:10:48 GLIDE WIRE ANGLE 180cm (CF2435) opened to sterile field. 10:28:08 Trailblazer 0.018 catheter ([id number]) opened to sterile field. 10:28:17 TRANSEND STEERABLE wire ([id number]) opened to sterile field. 10:28:33 ROADRUNNER .018 260cm glide wire (N12102) opened to sterile field. 10:29:20 CXI Catheter 90cm (Q08429) opened to sterile field. 10:41:46 INFLATOR BasixTOUCH (WI9867) opened to sterile field. 10:43:36 Inflate balloon Inflation number: 1 A [place] Plus 2 x 6 x 130 Balloon ([id number]) was prepped and advanced across the Undefined1 , then inflated . 10:45:13 Inflate balloon Inflation number: 2 A NANOCROSS ELITE 2MM X 80 X 150 ([id number]) was prepped and advanced across the Undefined1 , then inflated . 10:48:01 Procedure ended.(Physican Out) 10:50:27 Procedure and supply charges have been captured, reviewed, submitted an d are correct. 10:50:50 Report given to Other. 10:50:58 Patient transfered to Other with Bed. TRANSFERED TO THE OR 10:52:11 Full Disclosure recording stopped 10:53:49 Fluoroscopy time 18.40 minutes. 10:53:54 Fluoroscopy dose: 1108 mGy 10:53:54 Flurop Dose total: 1108 10:54:01 Contrast amount:Isovue 300 35ml. Intervention Summary Intervention Notes Time ActionType Lesion and Equipment Used Action# Pressure Duration Attributes 10:43:36 Inflate Undefined1 [place] Plus 2 x 1 0 00:00 balloon 6 x 130 Balloon ([id number]) 10:45:13 Inflate Undefined1 NANOCROSS ELITE 2 0 00:00 balloon 2MM X 80 X 150 ([id number]) Device Usage Item Name Manufacture Quantity Catalog Number [facility] Minimal Lot# / Charge Number Stock Stock Serial# Code Tegaderm 4 x 4 3M 1 [id number] [id number] [id number] 5 (1626W) Sterile Cardinal 1 [id number] 557099 187456 5 Angiographic Health Pack Bag Decanter Microtek 1 2001S 798727 94222 505624 5 (2001S) Medical Inc. CHIBA 22 X 15 Cook Medical 1 [id number] 555373 900032 5 [id number] needle KIT, INTRODUCER [place] 1 [id number] 871165 372045 722649 5 ACCUSTICK II W/C Scientific ([id number]) NITINOL .018 Medtronic 1 [id number] 278879 336682 5 80cm wire ([id number]) GLIDE WIRE GT Terumo 1 [id number] 477511 972257 5 DOUBLE ANGLE .018 ([id number]) GLIDE WIRE ANGLE Terumo 1 PX0117 222308 601187 676877 5 180cm (CF2797) Trailblazer Medtronic 1 ASC-018-150 589415 6977011 063391 5 0.018 catheter ([id number]) TRANSEND [place] 1 [id number] 430125 065546 5 STEERABLE wire Scientific ([id number]) ROADRUNNER .018 Cook Medical 1 A77111 984509 461047 566437 5 260cm glide wire (J45369) CXI Catheter Cook Medical 1 L65803 442666 640608 752028 5 [id number] 90cm (W43102) INFLATOR Merit 1 RV1628 700223 483831 820368 5 Annexon [employer] ([id number]) [place] Plus 2 x Medtronic 1 [id number] 341120 321353 370696 5 6 x 130 Balloon ([id number]) NANOCROSS ELITE Medtronic 1 [id number] 740155 594262 1 2MM X 80 X 150 ([id number]) Signature Audit [place] Stage Time Signature Unsigned Intra-Pro[facility] 04/14/2019 [facility] 10:51:59 AM RT(R) (R) (CV) 04/14/2019 10:53:30 AM Intra-Procedure 04/14/2019 Ida Sanchez 10:54:22 AM RT(R) [facility] [address] [place] [address]
[~2019-04-14 05:55] MED LIST changes: +HYDROCODON-ACE1 EA10 PO
[2019-04-14 06:33] VITALS: BP 129/91; BMI 37.1
--- NOTE | 2019-04-14 13:09 | NUR ---
NEPHROSTOMY TUBE PLACED LEFT FLANK. CONNECT TO DRAINAGE BAG. RED DRAINAGE RETURN.
[2019-04-14 13:55] VITALS: BP 124/86
--- NOTE | 2019-04-14 13:58 | NUR ---
RECEIVED PATIENT FROM RECOVERY. ALERT AND ORIENTED, ARRIVED VIA STRETCHER. C/O PAIN TO LEFT BACK/FLANK. DRAIN TUBE TO LEFT BACK, BLOODY DRAINAGE. NO S/S OF ACUTE DISTRESS NOTED. IV TO LEFT HAND, NS INFUSING @ 75ML/HR. SITE PATENT WITHOUT REDNESS OR SWELLING. DENIES ANY NEEDS AT THIS TIME. CALL LIGHT IN REACH. WILL CONTINUE TO MONITOR.
[2019-04-14 14:45] VITALS: BP 124/86; Ht 165.1 cm; Wt 101.4 kg
--- NOTE | 2019-04-14 14:52 | NUR ---
ASSESSMENT PER FLOW SHEET. PT IS WITHOUT DISTRESS. SHE AWAKENS INT AND WAS COMPLAING OF LEFT FLANK PAIN. LEFT NEPHROSTOMY TO AGUILAR BAG DRAINAGE. BLOODY DRAINAGE IN BAG,FAMILY AT BEDSIDE.CALL LIGHT IN REACH
--- NOTE | 2019-04-14 18:36 | NUR ---
RESTING IN BED, FAMILY AT BEDSIDE. DENIES ANY NEEDS AT THIS TIME. CALL LIGHT IN REACH. WILL CONTINUE TO MONITOR.
[2019-04-14 20:52] VITALS: BP 105/69
--- NOTE | 2019-04-15 02:24 | NUR ---
2100)AMB. IN HALLWAY WITH FAMILY MEMBER PASTOR WELL WILL CONTINUE TO MONITOR FOR ANY CHGES AND FOLLOW CURRENT PLAN OF CARE.
[2019-04-15 05:14] VITALS: BP 120/72
--- NOTE | 2019-04-15 07:32 | NUR ---
patient in bed with no s/s of distress . dressing changed this shift to nefrostomy tub draning to bag blood dranage. alert and orented able to voice needs and wants to staff.
[2019-04-15 08:57] VITALS: BP 102/56
--- NOTE | 2019-04-15 09:26 | OP ---
PATIENT NAME: MOON PARSONS STEPHANIE MEDICAL RECORD: [id number] :85 LOCATION:D.[id number] ADMISSION DATE:04/14/19 SURGEON: GENEVA WASHINGTON MD DATE OF OPERATION: 04/14/2019 SURGEON: Geneva Washington MD ANESTHESIA: General anesthesia by Svitlana Foreman CRNA. 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 PROCEDURE: Left percutaneous nephrolithotomy (PCNL), cystoscopy. FINDINGS: Faintly radiodense renal stones of the upper pole randolph with infundibular stenosis. SPECIMENS: Left renal stones. ESTIMATED BLOOD LOSS: Minimal. CLINICAL HISTORY: This is a 34-year-old female, who was referred with left flank pain. A CT scan shows a dilated left upper pole randolph which is filled with stones. The stones totalled 12 mm in diameter, cumulative diameter, and they are trapped in there due to infundibular stenosis. Interventional radiology had looked at the CT images and they felt that they could get access into the kidney for dilation of infundibular stenosis as well as to remove the stones via percutaneous nephrolithotomy. Dr. Graham managed to get a nephroureteral access this morning and now we are proceeding with surgery. She was given ampicillin and sulbactam 3 grams IV care transition coordinator to the OR. PROCEDURE IN DETAIL: The patient was already given general anesthetic in the interventional radiology suite as they had to put the nephroureteral access under CT guidance. The patient was transferred, fully intubated and ventilated to the operating room. On the stretcher, we put her legs in frogleg position and prepped and draped her. I performed cystoscopy using a 21-Togolese scope. Using grasping forceps, the end of the nephroureteral catheter was brought out from the bladder and out of the urethra. This will allow us to pass the Super Stiff wire all the way down through the lumen of the nephroureteral catheter. We will be able to clamp the wire with a hemostat to prevent loss of our access tract. A Rehman catheter was then inserted into the bladder. The patient was then turned over into the prone position on the Neri frame. All pressure points were padded. She was then prepped and draped. The nephroureteral catheter was accessed with the Super Stiff wire. The distal end of the wire was clamped with a hemostat. The nephroureteral catheter was removed, leaving the Super Stiff wire in place. On either side of the wire 1-cm incision was made with a #15 blade. A dual-lumen catheter was then placed over the wire and into the proximal ureter. Through the second lumen, a Sensor wire was placed as a safety wire. This was placed down into the bladder. The dual lumen catheter was then removed, leaving the [address] The safety wire was clamped to the drapes. We used the Super Stiff wire or the working wire. The NephroMax balloon dilator was placed. We dilated the tract to 20 atmospheres of pressure. A 30-Togolese working sheath was placed down to maintain the tract. The balloon was then deflated and removed entirely. The nephroscope was then introduced. We saw numerous smaller stones which were quite rounded in appearance. These OPERATIVE REPORT [id number] MOON PARSONS had been pushed by tract dilation into the renal pelvis. I removed two of these using a basket. The remainder were suctioned up and broken up using the [employer] LithoClast ultrasonic modality. At the end of the procedure, we could no longer find any radiographic evidence of radiodensities within the renal pelvis. Also, looking in nephroscopy with into as many calices I could easily access, I could not see any further stones. The scope was then removed. Over the Super Stiff wire, we inserted the 24-Togolese Malecot nephrostomy tube. Once the tube was in correct position, the stylet was removed to allow the Malecot wings to expand. The working sheath, safety wire, and the Super Stiff working wire were entirely removed. The nephrostomy tube was sutured to the skin using a 2-0 nylon suture. Dressings were applied and the nephrostomy tube was placed to bag drainage. The Rehman catheter was removed. TRANSINT:[id number] Voice Confirmation ID: [id number] DOCUMENT ID: [id number] GENEVA WASHINGTON MD at 0926 CC: [id number] DICTATION DATE: 04/14/19 1308 ICER MACHINE: 04/14/19 2350 ADM IN [place] [id number] [place] [address]
[2019-04-15 11:54] VITALS: BP 128/77
[2019-04-15 16:22] VITALS: BP 107/56
--- NOTE | 2019-04-15 16:46 | NUR ---
VERBAL PERMISSION FROM DR. WASHINGTON TO ALTERNATE DEMEROL AND NORCO Q3 NEEDED.
[2019-04-15 19:30] VITALS: BP 109/73
--- NOTE | 2019-04-15 20:45 | NUR ---
REC'D CHGE OF SHIFT WALKING ROUNDS IN BED ON PHONE LYING ON RIGHT SIDE. DRSG WITH NEPHROSTOMY TUBE CONNECTED TO GRAVITY DRAINAGE BAG DRAINING CLEAR LITE YELLOW COLORED URINE.ENCOURAGED TO AMBULATE TO ASSIST WITH PASSING GAS.WILL CONTINUE TO MONITOR FOR ANY CHGES IN CURRENT STATUS AND FOLLOW CURRENT PLAN OF CARE.
[2019-04-16 00:30] VITALS: BP 112/70
--- NOTE | 2019-04-16 03:58 | NUR ---
I have reviewed this patient and I concur with the Shift Assessment completed by the Licensed Practical Nurse today this shift.
[2019-04-16 05:30] VITALS: BP 108/67
--- NOTE | 2019-04-16 09:12 | NUR ---
PT IS RESTING IN BED WITH EYES OPEN. RESPIRATIONS ARE EVEN AND UNLABORED. PT REPORTS PAIN TO LEFT FLANK. WILL ADDRESS. SEE EMAR. PT DENIES PRESENCE OF N/V AT THIS TIME. NEPHROSTOMY NOTED TO LEFT FLANK AND DRAINING WITHOUT DIFFICULTY. DRAINAGE IS SANGUINOUS. BS ACTIVE X 4. BED IS IN THE LOWEST POSITION. CALL LIGHT AND BEDSIDE TABLE ARE WITHIN REACH. SIDE RAILS X 2. PT DENEIS FURTHER NEEDS. WILL CONT TO MONITOR.
[2019-04-16 09:20] VITALS: BP 154/65
[2019-04-16 12:31] VITALS: BP 110/71
--- NOTE | 2019-04-16 14:27 | NUR ---
MODERATE AMOUNT OF DRAINAGE NOTED TO LEFT FLANK DRESSING. DRESSING CHANGED WITH 4X4 GUAZE AND ABD PADS. PT TOLERATED WELL.
[2019-04-16] MEDS ORDERED: DEMEROL100 MG PO (15:08)
--- NOTE | 2019-04-16 16:10 | NUR ---
ALL DISCHARGE INSTRUCTIONS COVERED WITH PT. (1) PRINTED RX GIVEN TO PT. ALL QUESTIONS ANSWERED. ALL DISCHARGE PAPERS SIGNED. PT DENIES ANY FURTHER QUESTIONS/CONCERNS/NEEDS AT THIS TIME. PT TO NOTIFY NURSE WHEN TRANSPORTATION ARRIVES.
--- NOTE | 2019-04-16 17:29 | NUR ---
PT TRANSPORTED FROM ROOM VIA WHEELCHAIR. PT DENIES FURTHER QUESTIONS/CONCERNS/NEEDS AT THIS TIME.
== END 2019-04-16 17:30 | disposition home or self-care (01) | DRG 661 ==
LOC: D.OPS 05:55 → D.MS 05:55 → D.PAN 08:00 → D.OPS 08:00 → D.PAN 08:15 → D.MS 13:30 → D.OPS 13:30 → D.MS 04-16 17:30
PROVIDERS: Radiology Vascular & Interventional Radiology; ADMIT Urology; ATTEND Urology
PROC: 0TC13ZZ Extirpation of Matter from Left Kidney, Percutaneous Approach (ICD-10-PCS; principal; 2019-04-14 08:00)
DX: N20.0 Calculus of kidney (principal); N28.89 Other specified disorders of kidney and ureter

== ENCOUNTER 2019-04-26 09:18 | Emergency (ER) | payer OTHER ==
[~2019-04-26] VITALS: Ht 165.1 cm; Wt 100.5 kg
[~2019-04-26 09:18] MED LIST changes: +DEMEROL100 MG PO
[2019-04-26 09:20] VITALS: Ht 165.1 cm; Wt 100.5 kg
[2019-04-26 09:48] LABS: BASOPHILS 0.1 % (0-2); EOSINOPHILS 0.8 % (0-7); HEMATOCRIT 43.8 % (36.0-48.0); HEMOGLOBIN 14.7 g/dL (12-16); IMMATURE GRANULOCYTES 0.7 % (0-5); LYMPHOCYTES 20.4 % (15-50); MCH 30.7 pg (26.0-34.0); MCHC 33.6 g/dL (31.0-37.0); MCV 91.4 fL (80.0-100.0); MONOCYTES 7.5 % (2-11); NEUTROPHILS 70.5 % (40-80); PLATELET COUNT 405 10x3/uL (130-400); RBC 4.79 10x6/uL (4.00-5.40); RDW 12.4 % (11.5-14.5); WBC 14.2 10x3/uL (4.8-10.8)
[2019-04-26 09:49] LABS: APPEARANCE CLEAR (CLEAR); BILIRUBIN NEGATIVE (NEGATIVE); COLOR STRAW (YELLOW); GLUCOSE NEGATIVE (NEGATIVE); KETONE NEGATIVE (NEGATIVE); NITRITE NEGATIVE (NEGATIVE); PROTEIN NEGATIVE (NEGATIVE); SPECIFIC GRAVITY 1.005 (1.005-1.020); UROBILINOGEN NORMAL (NORMAL)
[2019-04-26 10:11] LABS: CALC OSMOLALITY 275 mosm/kg (275-300); CALCIUM 8.7 mg/dL (8.5-10.1); CARBON DIOXIDE 23.5 mmol/L (21.0-32.0); CHLORIDE - SERUM 104 mmol/L (98-107); CREATININE - SERUM 0.8 mg/dL (0.6-1.3); GLUCOSE 121 mg/dL (74-106); POTASSIUM - SERUM 4.2 mmol/L (3.5-5.1); SODIUM 137 mmol/L (136-145); UREA NITROGEN 15 mg/dL (7-18); eGFR NON AFRICAN AMERICAN 87 mL/min (90-120)
[2019-04-26 10:12] LABS: ALBUMIN 3.4 g/dL (3.4-5.0); ALKALINE PHOSPHATASE 103 U/L (46-116); ALT (SGPT) 51 U/L (10-68); BILIRUBIN - TOTAL 0.23 mg/dL (0.2-1.3); PROTEIN - SERUM 7.6 g/dL (6.4-8.2)
[2019-04-26 11:14] LABS: UDS - AMPHET NEGATIVE QUAL (NEGATIVE); UDS - BARB NEGATIVE QUAL (NEGATIVE); UDS - BENZO NEGATIVE QUAL (NEGATIVE); UDS - COCAINE NEGATIVE QUAL (NEGATIVE); UDS - OPIATE POSITIVE QUAL (NEGATIVE); UDS - PCP NEGATIVE QUAL (NEGATIVE); UDS - THC NEGATIVE QUAL (NEGATIVE)
[2019-04-26] MEDS ORDERED: SENNA LAXATIVE8.6 MG PO (12:03)
[2019-04-26 12:13] VITALS: BP 135/81
== END 2019-04-26 12:14 | disposition home or self-care (01) ==
LOC: D.ER 09:18
PROVIDERS: Family Medicine
DX: K59.03 Drug induced constipation (principal); T40.2X5A Adverse effect of other opioids, initial encounter; Z87.442 Personal history of urinary calculi

== ENCOUNTER → 2019-04-29 10:16 | Outpatient (CLI) | payer OTHER ==
[2019-04-26 09:20] VITALS: BMI 36.8
[~2019-04-29 10:16] MED LIST changes: +SENNA LAXATIVE8.6 MG PO
[2019-04-29 11:22] LABS: ALBUMIN 3.6 g/dL (3.4-5.0); ALKALINE PHOSPHATASE 105 U/L (46-116); ALT (SGPT) 61 U/L (10-68); BILIRUBIN - TOTAL 0.28 mg/dL (0.2-1.3); CALC OSMOLALITY 273 mosm/kg (275-300); CALCIUM 8.8 mg/dL (8.5-10.1); CARBON DIOXIDE 25.2 mmol/L (21.0-32.0); CHLORIDE - SERUM 104 mmol/L (98-107); CREATININE - SERUM 0.7 mg/dL (0.6-1.3); GLUCOSE 83 mg/dL (74-106); SODIUM 137 mmol/L (136-145); UREA NITROGEN 15 mg/dL (7-18); eGFR NON AFRICAN AMERICAN > 90 mL/min (90-120)
== END | disposition home or self-care (01) ==
LOC: D.LAB 10:16
PROVIDERS: ATTEND Urology
DX: N20.0 Calculus of kidney (principal)

== ENCOUNTER 2019-07-21 18:55 | Emergency (ER) | payer OTHER ==
[~2019-07-21] VITALS: Ht 165.1 cm; Wt 98.6 kg
[~2019-07-21 18:55] MED LIST changes: +MIRALAX17 GM PO
[2019-07-21 19:35] VITALS: Ht 165.1 cm; Wt 98.6 kg
[2019-07-21 20:31] LABS: BILIRUBIN NEGATIVE (NEGATIVE); GLUCOSE NEGATIVE (NEGATIVE); KETONE NEGATIVE (NEGATIVE); NITRITE NEGATIVE (NEGATIVE); UROBILINOGEN NORMAL (NORMAL)
[2019-07-21 20:54] LABS: BASOPHILS 0.2 % (0-2); EOSINOPHILS 0.9 % (0-7); HEMOGLOBIN 15.4 g/dL (12-16); IMMATURE GRANULOCYTES 0.2 % (0-5); LYMPHOCYTES 37.1 % (15-50); MCH 30.6 pg (26.0-34.0); MCHC 33.5 g/dL (31.0-37.0); MCV 91.3 fL (80.0-100.0); MEAN PLATELET VOLUME 9.4 fL (7.4-10.4); MONOCYTES 9.3 % (2-11); NEUTROPHILS 52.3 % (40-80); RBC 5.04 10x6/uL (4.00-5.40); WBC 11.2 10x3/uL (4.8-10.8)
[2019-07-21 20:56] LABS: PLATELET COUNT 283 10x3/uL (130-400)
[2019-07-21 21:10] LABS: CALC OSMOLALITY 278 mosm/kg (275-300); CALCIUM 8.7 mg/dL (8.5-10.1); CARBON DIOXIDE 24.5 mmol/L (21.0-32.0); CHLORIDE - SERUM 105 mmol/L (98-107); CREATININE - SERUM 0.8 mg/dL (0.6-1.3); GLUCOSE 105 mg/dL (74-106); POTASSIUM - SERUM 4.6 mmol/L (3.5-5.1); SODIUM 139 mmol/L (136-145); UREA NITROGEN 16 mg/dL (7-18); eGFR NON AFRICAN AMERICAN 87 mL/min (90-120)
[2019-07-21 21:18] LABS: ALBUMIN 3.9 g/dL (3.4-5.0); ALKALINE PHOSPHATASE 105 U/L (30-120); ALT (SGPT) 23 U/L (10-68); AMYLASE - SERUM 31 U/L (25-115); BILIRUBIN - TOTAL 0.19 mg/dL (0.2-1.3); LIPASE 156 U/L (73-393); PROTEIN - SERUM 7.6 g/dL (6.4-8.2)
[2019-07-21 21:19] LABS: TROPONIN-I < 0.017 ng/mL (0.000-0.060)
[2019-07-21] MEDS ORDERED: TORADOL10 MG PO (21:44)
[2019-07-21 22:25] VITALS: BP 133/80
== END 2019-07-21 22:27 | disposition home or self-care (01) ==
LOC: D.ER 18:55
PROVIDERS: Family Medicine
DX: R10.32 Left lower quadrant pain (principal); Z87.442 Personal history of urinary calculi

== ENCOUNTER 2019-11-29 13:28 | Emergency (ER) | payer OTHER ==
[~2019-11-29 13:28] MED LIST changes: +TORADOL10 MG PO
[2019-11-29 13:36] VITALS: Ht 165.1 cm
[2019-11-29 14:23] LABS: BASOPHILS 0.2 % (0-2); EOSINOPHILS 0.7 % (0-7); HEMATOCRIT 45.8 % (36.0-48.0); HEMOGLOBIN 15.3 g/dL (12-16); IMMATURE GRANULOCYTES 0.3 % (0-5); LYMPHOCYTES 36.3 % (15-50); MCH 30.8 pg (26.0-34.0); MCHC 33.4 g/dL (31.0-37.0); MCV 92.2 fL (80.0-100.0); MEAN PLATELET VOLUME 9.5 fL (7.4-10.4); MONOCYTES 7.6 % (2-11); NEUTROPHILS 54.9 % (40-80); PLATELET COUNT 300 10x3/uL (130-400); RBC 4.97 10x6/uL (4.00-5.40); RDW 12.7 % (11.5-14.5); WBC 8.7 10x3/uL (4.8-10.8)
[2019-11-29 14:33] LABS: CALC OSMOLALITY 271 mosm/kg (275-300); CALCIUM 9.1 mg/dL (8.5-10.1); CARBON DIOXIDE 25.5 mmol/L (21.0-32.0); CHLORIDE - SERUM 103 mmol/L (98-107); CREATININE - SERUM 0.9 mg/dL (0.6-1.3); GLUCOSE 93 mg/dL (74-106); SODIUM 136 mmol/L (136-145); UREA NITROGEN 13 mg/dL (7-18); eGFR NON AFRICAN AMERICAN 76 mL/min (90-120)
[2019-11-29 14:35] LABS: HCG SERUM NEGATIVE (NEGATIVE)
[2019-11-29 14:41] LABS: ALBUMIN 4.1 g/dL (3.4-5.0); ALKALINE PHOSPHATASE 105 U/L (30-120); ALT (SGPT) 24 U/L (10-68)
[2019-11-29 15:19] LABS: BILIRUBIN NEGATIVE (NEGATIVE); GLUCOSE NEGATIVE (NEGATIVE); KETONE NEGATIVE (NEGATIVE); NITRITE NEGATIVE (NEGATIVE); UROBILINOGEN NORMAL (NORMAL)
[2019-11-29 19:03] LABS: AMYLASE - SERUM 27 U/L (25-115); LIPASE 125 U/L (73-393)
[2019-11-29] MEDS ORDERED: ZOFRAN ODT4 MG/UDTAB PO (20:40)
[2019-11-29] MEDS ORDERED: BENTYL 20 MG TA20 MG PO (20:40)
[2019-11-29 21:16] VITALS: BP 113/72
== END 2019-11-29 21:16 | disposition home or self-care (01) ==
LOC: D.ER 13:28
PROVIDERS: Family Medicine
DX: M54.5 Low back pain (principal); R10.30 Lower abdominal pain, unspecified